=== PATIENT | male | born 1950 | race African-American/Black ===

== ENCOUNTER 2017-10-30 11:41 | Inpatient (IN) | payer OTHER ==
[~2017-10-30] VITALS: Ht 180.3 cm; Wt 99.8 kg
[~2017-10-30 11:41] MED LIST: AMLODIPINE BESY10 MG PO; ASPIR 8181 MG PO; B-121000 MC2 PO; CALCIUM 500 +1 EAC5 PO; DUONEB 2.5-0.5 M3 ML INH; HYDROCHLOROTHIA25 M2 PO; LIPITOR80 MG PO; MAXZIDE-25 MG1 EACH PO; METFORMIN HCL500 MG PO; NAPROSYN500 MG PO; SERTRALINE HCL50 MG PO; TRAZODONE HCL100 MG PO; VENTOLIN HFA 1818 GM INH; VIAGRA100 MG PO
[2017-10-30 11:48] VITALS: BP 121/77
[2017-10-30 12:19] LABS: ABSOLUTE BASOPHILS 0.1 thou/uL (0.0-0.2); ABSOLUTE EOSINOPHILS 0.1 thou/uL (0.0-0.7); ABSOLUTE LYMPHOCYTES 1.5 thou/uL (0.8-5.3); ABSOLUTE MONOCYTES 1.2 thou/uL (0.0-1.2); ABSOLUTE NEUTROPHILS 8.2 thou/uL (1.6-8.1); EOSINOPHILS 0.5 %; HEMATOCRIT 38.9 % (42.0-52.0); HEMOGLOBIN 12.4 gm/dL (14.0-18.0); LYMPHOCYTES 13.2 %; MCH 30.9 pg (26.0-34.0); MCHC 31.8 g/dL (28.0-37.0); MCV 97.2 fL (80.0-100.0); MONOCYTES 10.8 %; MPV 9.4 fl. (7.2-11.1); NUCLEATED RBCS 0 /100WBC; PLATELET COUNT* 308 thou/uL (150-400); POLYS 74.5 %; RBC 4.01 mil/uL (4.50-6.00); RDW-CV 17.2 % (10.5-14.5); WBC 11.1 thou/uL (4.0-11.0)
[2017-10-30 12:30] LABS: ANION GAP 13 mmol/L (7-16); BUN 36 mg/dL (7-18); CALCIUM 9.2 mg/dL (8.5-10.1); CHLORIDE 101 mmol/L (98-107); CO2 21 mmol/L (21-32); CREATININE 1.6 mg/dL (0.6-1.3); GLUCOSE 166 mg/dL (70-99); POTASSIUM 4.9 mmol/L (3.5-5.1); SODIUM 135 mmol/L (136-145)
[2017-10-30 12:40] LABS: APTT 25.6 Seconds (25.0-31.3); INR 1.3; PROTIME 12.7 Seconds (9.20-11.50)
[2017-10-30 12:53] LABS: ALKALINE PHOSPHATASE 173 U/L (46-116); CK-MB MASS 1.9 ng/mL (<0.5-3.6); LIPASE 248 U/L (73-393); MAGNESIUM 2.1 mg/dL (1.8-2.4); NT-PRO BRAIN NAT PEPTIDE 2535 pg/mL (<300); SGOT 262 U/L (15-37); SGPT 857 U/L (30-65); TOTAL BILIRUBIN 1.5 mg/dL (<0.1-1.0); TOTAL PROTEIN 8.1 g/dL (6.4-8.2); TROPONIN-I LEVEL <0.06 ng/mL (<0.06)
--- NOTE | 2017-10-30 14:30 | NUR ---
CICI NOTIFIED UPON PT RETURN FROM CT. PT CONNECTED TO MONITOR AND O2
[2017-10-30 15:00] VITALS: BP 134/66
--- NOTE | 2017-10-30 15:55 | NUR ---
PT'S PRIMARY RN VLADIMIR LEFT FOR TELEMETRY UNIT, WILL BE ASSUMING CARE OF PT AGAIN ONCE PT MOVES TO TELEMETRY FLOOR.
[2017-10-30 16:20] VITALS: BP 134/66
--- NOTE | 2017-10-30 16:33 | 2DMMODE ---
[place] [id number] 2 D/M-MODE ECHOCARDIOGRAM Name: TOM DE JESUS Room: [address] IN [facility]#: [id number] Admission: 10/30/17 Attend Phys: Maritza Chairez, Discharge: Date of : 46 Date of Service: 10/30/17 1633 Report #: [id number] THIS REPORT FOR: //name// APPROVED REPORT Study performed: 10/30/2017 14:28:52 EXAM: Comprehensive 2D, Doppler, and color-flow Echocardiogram Patient Location: In-Patient Room #: er Status: routine BSA: 2.13 HR: 68 bpm BP: 118/74 mmHg Rhythm: NSR Other Information Study Quality: Good Indications Chest Pressure 2D Dimensions LVEF(%): 17.36 (>50%) IVSd: 9.53 (7-11mm) LVOT Diam: 20.00 (18-24mm) LVDd: 55.88 mm PWd: 8.32 (7-11mm) Ascending Ao: 34.82 (22-36mm) LVDs: 51.45 (25-40mm) Aortic Root: 33.21 mm Carlos's LVEF: 17.36 % Volumes Left Atrial Volume (Systole) LA ESV Index: 39.10 mL/m2 Aortic Valve AoV Peak Eleno.: 1.46 m/s AO Peak Gr.: 8.49 mmHg LVOT Max P.28 mmHg AO Mean Gr.: 4.71 mmHg LVOT Mean P.33 mmHg LVOT Max V: 1.15 m/s AO V2 VTI: 18.23 cm LVOT Mean V: 0.69 m/s BOGDAN (VTI): 2.65 cm2 LVOT V1 VTI: 15.39 cm Mitral Valve E/A Ratio: 2.92 [place] [id number] 2 D/M-MODE ECHOCARDIOGRAM Name: TOM DE JESUS Room: [address] IN [facility].#: [id number] Admission: 10/30/17 Attend Phys: Maritza Chairez, Discharge: Date of : 46 Date of Service: 10/30/17 1633 Report #: [id number] MV Decel. Time: 101.17 ms MV E Max Eleno.: 1.09 m/s MV PHT: 29.34 ms MVA (PHT): 7.50 cm2 TDI E/Lateral E': 7.79 E/Medial E': 13.63 Medial E' Eleno.: 0.08 m/s Lateral E' Eleno.: 0.14 m/s Pulmonary Valve PV Peak Eleno.: 0.91 m/s PV Peak Gr.: 3.30 mmHg Tricuspid Valve TR Peak Gr.: 24.22 mmHg RVSP: 29.00 mmHg Left Ventricle The left ventricle is normal size. There is global hypokinesis of the left ventricle. There is normal left ventricular wall thickness. Left ventricular systolic function is severely decreased. LVEF is 20-25%.. Grade IV - fixed restrictive diastolic dysfunction. Right Ventricle The right ventricle is normal size. The right ventricular systolic function is normal. Pacemaker lead is present in the right ventricle. Atria Left atrium is mildly dilated. The right atrium size is normal. Aortic Valve The aortic valve is normal in structure. Trace aortic regurgitation. There is no aortic valvular stenosis. Mitral Valve The mitral valve is normal in structure. Moderate to severe mitral regurgitation No evidence of mitral valve stenosis. Tricuspid Valve The tricuspid valve is normal in structure. Mild tricuspid regurgitation. The RVSP is 35___ mmHg. Pulmonic Valve The pulmonary valve is normal in structure. [place] [id number] 2 D/M-MODE ECHOCARDIOGRAM Name: TOM DE JESUS Room: [address] IN [facility]#: [id number] Admission: 10/30/17 Attend Phys: Maritza Chairez, Discharge: Date of : 46 Date of Service: 10/30/17 1633 Report #: [id number] Great Vessels The aortic root is normal in size. IVC is normal in size and collapses with >50% inspiration Pericardium There is no pericardial effusion. <Conclusion> LVEF is 20-25%.. Left atrium is mildly dilated. Moderate to severe mitral regurgitation <ELECTRONICALLY SIGNED> By: Raghav Ramos MD, FACC 10/30/17 1633 1633 1633 Raghav Ramos MD, FACC /INF
--- NOTE | 2017-10-30 16:47 | EKG ---
[place] [address] ELECTROCARDIOGRAM REPORT Name: TOM DE JESUS Room: [address] ADM IN [facility]#: [id number] Admission: 10/30/17 Attend Phys: Maritza Chairez MD Discharge: Date of : 46 Report #: [id number] THIS REPORT FOR: //name// [facility] ED Test Date: 2017-10-30 Test Time: 11:48:28 Pat Name: TOM MCBRIDEING Department: Room: [facility] Gender: M Sales Development Director: CHANTELL : 1950 Requested By: Nick Tejeda Order Number: [id number] MD: Raghav Ramos Measurements Intervals [place] Rate: 85 P: 0 NH: 198 QRS: 114 QRSD: 166 T: 44 QT: 471 QTc: 561 Interpretive Statements Ventricular-paced complexes atrial fibrillation No further analysis attempted due to paced rhythm Compared to ECG 09/12/2017 07:23:22 No significant changes Electronically Signed On 10-30-2017 16:47:09 EXECUTIVE CONSULTANT by Raghav Ramos [email or web address] <ELECTRONICALLY SIGNED> By: Raghav Ramos MD, [facility] 10/30/17 1647 1148 1148 Raghav Ramos MD, [facility] /EPI
--- NOTE | 2017-10-30 17:30 | NUR ---
VSS, ASSUMED CARE OF PT FROM ER, ASSESSMENT PERFORMED AND CHARTED, FALL PRECAUTION IN PLACE AND CALL LIGHT IN REACH, PT IS A&O4 AND UP WITH STAND BY, PT IS ON 2L NC PRN, IS PACED ON THE MONITOR, PT STATES CHEST PAIN AND IS SOA WHEN SLEEPING, PT GOAL IS TO IMPROVE BREATHING AND SIT UP IN CHAIR, WILL FOLLOW WITH PLAN OF CARE AND HOURLY ROUNDS,
[2017-10-30 20:43] VITALS: BP 128/76
[2017-10-31 00:25] VITALS: BP 110/64
[2017-10-31 04:35] VITALS: BP 115/62
[2017-10-31 08:00] VITALS: BP 103/60
--- NOTE | 2017-10-31 08:24 | NUR ---
PT IS ABLE TO COMMUNICATE HIS NEEDS TO STAFF EFFECTIVELY. HE HAS DENIED THE NEED FOR PAIN MEDICATION UP TO THIS TIME. BLE EDEMA HAS DECREASED NOTABLY REPORTED BY THE PATIENT.
[2017-10-31 12:58] VITALS: BP 116/68
[2017-10-31 16:00] VITALS: BP 123/76
--- NOTE | 2017-10-31 18:52 | NUR ---
VSS, ASSESSMENT PERFORMED AND CHARTED, FALL PRECAUTIONS IN PLACE AND CALL LIGHT IN REACH, PT IS UP AD YASEMIN AND ON 2L NC PRN, PT DEINES ANY PAIN AND HIS GOAL IS TO WALK IN ROOM AND IMPROVE BREATHING, PT IS TRACING SR ON THE MONITOR HE IS A&O4, WILL FOLLOW WITH PLAN OF CARE.
--- NOTE | 2017-10-31 18:54 | NUR ---
VSS. PT IS PROGRESSING TOWARDS GOAL, PT HAS IMPROVED BREATHING AND HAS BEEN UP IN ROOM IN CHAIR AND WALKING IN ROOM, PT DENIES ANY PAIN AND IS TRACING SR AV-PACED ON THE MONITOR, HOURLY ROUNDS COMPLETED,
[2017-10-31 20:17] VITALS: BP 113/73
[2017-11-01] VITALS: BP 93/56
[2017-11-01 04:00] VITALS: BP 90/53
--- NOTE | 2017-11-01 05:36 | NUR ---
PT IS ABLE TO COMMUNICATE HIS NEEDS TO STAFF EFFECTIVELY. HE HAS DENIED THE NEED FOR PAIN MEDICATION UP TO THIS TIME. NIGHT TIME O2 DESAT STUDY PERFORMED DURING THIS SHIFT.
[2017-11-01 08:00] VITALS: BP 91/48
--- NOTE | 2017-11-01 09:00 | NUR ---
VSS, ASSUMED CARE IN THE AM, ASSESSMENT PERFORMED AND CHARTED, FALL PRECAUTIONS IN PLACE AND CALL LIGHT IN REACH, PT IS A&O4 AND ON RA AND UP AD YASEMIN TRACING SR ON THE MOITOR, DENIES MARYA PAIN, WEARS 2L NC PRN AT HS, PT GOAL IS TO IMPROVE BREATHING AND DECREAS SWELLING IN LEGS, WILL FOLLOW WITH PLAN OF CARE,
[2017-11-01 12:00] VITALS: BP 110/75
[2017-11-01 13:01] LABS: HEMATOCRIT 33.5 % (42.0-52.0); HEMOGLOBIN 10.9 gm/dL (14.0-18.0); MCH 31.1 pg (26.0-34.0); MCHC 32.5 g/dL (28.0-37.0); MCV 95.7 fL (80.0-100.0); MPV 9.7 fl. (7.2-11.1); NUCLEATED RBCS 0 /100WBC; PLATELET COUNT* 277 thou/uL (150-400); RDW-CV 17.4 % (10.5-14.5); WBC 10.7 thou/uL (4.0-11.0)
[2017-11-01 13:19] LABS: ALBUMIN 3.3 g/dL (3.4-5.0); CALCIUM 8.7 mg/dL (8.5-10.1); CREATININE 1.7 mg/dL (0.6-1.3); MAGNESIUM 2.4 mg/dL (1.8-2.4); POTASSIUM 4.6 mmol/L (3.5-5.1); TOTAL BILIRUBIN 0.6 mg/dL (<0.1-1.0)
[2017-11-01 13:32] LABS: ABSOLUTE LYMPHOCYTES 0.4 thou/uL (0.8-5.3); ABSOLUTE MONOCYTES 0.4 thou/uL (0.0-1.2); ABSOLUTE NEUTROPHILS 9.8 thou/uL (1.6-8.1); ANISOCYTOSIS 1+; ATYPICAL LYMPHS 1 %; BURR CELLS Occasional; HYPOCHROMASIA 2+; PLATELET ESTIMATE ADEQUATE
[2017-11-01 16:00] VITALS: BP 123/76
--- NOTE | 2017-11-01 17:28 | NUR ---
VSS, PT IS PROGRESSING TOWARDS GOAL, PT IS ON 2L NC PRN AT HS, PT IS UP AD YASEMIN, TRACING ST ON THE MONITOR AND DENIES ANY PAIN, PT HAS PITTING 2 PLUS IN LOWER LEGS, IS TO HAVE STRESS TEST TOMORROW, HOURLY ROUNDS COMPLETED, WILL FOLLOW WITH PLAN OF CARE.
[2017-11-01 20:34] VITALS: BP 112/76
[2017-11-02] VITALS: BP 104/52
[2017-11-02 04:00] VITALS: BP 93/64
[2017-11-02 05:46] LABS: CALCIUM 8.6 mg/dL (8.5-10.1); CREATININE 1.6 mg/dL (0.6-1.3); POTASSIUM 4.7 mmol/L (3.5-5.1)
--- NOTE | 2017-11-02 06:56 | NUR ---
PT IS ABLE TO COMMUNICATE HIS NEEDS TO STAFF EFFECTIVELY. HE HAS DENIED THE NEED FOR PAIN MEDICATION UP TO THIS TIME. HE HAS BEEN NPO SINCE MIDNIGHT FOR A A TENTATIVELY SCHEDULED STRASS TEST FOR LATER TODAY.
[2017-11-02 08:00] VITALS: BP 102/63
--- NOTE | 2017-11-02 09:03 | NUR ---
VSS, ASSUMED CARE IN THE AM, ASSESSMENT PERFORMED AND CHARTED, FALL PRECAUTIONS IN PLACE AND CALL LIGHT IN REACH, PT IS A&O4 AND UP ADLIB AND DENIES ANY PAIN, PT GOAL IS TO IMPROVE BREATHING AND DECREAS SWELLING IN LEGS, COMPLETE STRSS TEST, PT IS V-PACED ON THE MONITOR AND ON 2L NC SC AT HS WILL FOLLOW WITH PLAN OF CARE
[2017-11-02 12:22] VITALS: BP 119/68
--- NOTE | 2017-11-02 14:49 | NUR ---
INITIAL ASSESSMENT: Pt evaluated for d/c planning needs. Reviewed chart and spoke with nurse and pt. Pt is alert and oriented. Pt lives in house with spouse and adult daughter. Pt was independent with ADL's prior to admission. Pt has nebulizer and CPAP at home, and uses walker for ambulation. Pt has not had home health in the past. Pt plans on returning home on d/c from hospital. Will remain available to assist as needed.
[2017-11-02 15:49] VITALS: BP 111/65
--- NOTE | 2017-11-02 16:25 | EKG ---
[place] [address] ELECTROCARDIOGRAM REPORT Name: TOM DE JESUS Room: [address] ADM IN [facility].#: [id number] Admission: 10/30/17 Attend Phys: Maritza Chairez MD Discharge: Date of : 46 Report #: [id number] THIS REPORT FOR: //name// [facility] Test Date: 2017-11-01 Test Time: 13:49:31 Pat Name: TOM DE JESUS Department: Room: [address] Gender: M Claims Associate: [facility] : 1950 Requested By: Sebastien Brunner Order Number: [id number] Regan MD: Bimal Barron Measurements Intervals [place] Rate: 98 P: 31 NV: 113 QRS: 117 QRSD: 193 T: -32 QT: 432 QTc: 552 Interpretive Statements Ventricular-paced complexes tracking atrial depolarization Nonspecific intraventricular conduction delay Baseline wander in lead(s) V6 Compared to ECG 10/30/2017 11:48:28 Intraventricular conduction delay now present Atrial fibrillation no longer present Electronically Signed On 11-02-2017 16:25:35 INSPECTOR POISING by Bimal Barron [email or web address] <ELECTRONICALLY SIGNED> By: Bimal Barron MD, FAC 11/02/17 1625 1349 1349 Bimal Barron MD, [facility] /EPI
--- NOTE | 2017-11-02 17:09 | CARDNUC ---
[place] [address] CARDIAC NUCLEAR IMAGING REPORT Name: TOM DE JESUS Room: [address] IN [facility]#: [id number] Admission: 10/30/17 Attend Phys: Maritza Chairez, Discharge: Date of : 46 Date of Service: 11/02/17 1709 Report #: [id number] THIS REPORT FOR: //name// APPROVED REPORT Exam: Nuclear Stress Test Indication: Chest pain, Dyspnea Patient Location: In-Patient Room #: 223 Stress Tech: Suellen Winkler Stress Nurse: Marisabel House RN NM Tech:KOREY Leiva Ht: 5 ft 11 in Wt: 225 lbs BSA: 2.22 m2 BMI: 31.37 Medical History Medical History: Atrial Fibrillation, COPD, Diabetes, HTN, Hyperlipidemia, Pacemaker in situ Medications: amlodipine, atorvastatin, asa, furosemide Allergies: PCN Cardiac Risk Factors: Age, DM, HTN, Hyperlipidemia Previous Cardiac Procedures: PPM Exercise History: Sedentary Stress Test Details Stress Test: Pharmacologic stress testing performed using 0.4 mg of regadenoson per 5 mL given IV over 10 seconds. Reason for pharmacologic stress test: PPM. HR Resting HR: 96 bpm Max Heart Rate (APMHR): 152 bpm Max HR Achieved: 96 bpm Target HR (85% APMHR): 129 bpm % of APMHR: 63 Recovery HR: 94 bpm BP Resting BP: 122/85 mmHg Max BP: 123/71 mmHg ECG Resting ECG: Sinus Rhythm with ventricular pacing Stress ECG: Sinus Rhythm with ventricular pacing ST Change: None Arrhythmia: None [address] [address] CARDIAC NUCLEAR IMAGING REPORT Name: TOM DE JESUS Room: [address]#: [id number] Admission: 10/30/17 Attend Phys: Maritza Chairez, Discharge: Date of : 46 Date of Service: 11/02/17 1709 Report #: [id number] Recovery ECG: Sinus Rhythm with ventricular pacing Recovery ST Change: None Recovery Arrhythmia: None Clinical Reason for Termination: Completed protocol Stress Symptoms: - Exercise duration: 0 min sec Exercise capacity: 1.0 METs The patient had mild chest pressure with Lexiscan infusion that resolved in recovery. Stress ECG Conclusion The baseline EKG showed atrial sensing with ventricular pacing. EKGs obtained during and post Lexiscan infusion showed atrial sensing with ventricular pacing. NM EXAM: Myocardial Perfusion REST/STRESS Imaging Protocol: Rest Tc-99m/Stress Tc-99m 1 day Resting Data Rest SPECT myocardial perfusion imaging was performed in supine position 30 minutes following the intravenous injection of 12.0 mCi of Tc-99m Sestamibi. Time of rest injection: 1040 Time of rest imagin The images were gated to evaluate regional wall motion and calculate left ventricular ejection fraction. Administration Route: IV Pharmacologic Stress Pharmacologic stress test was performed by injecting Regadenoson 0.4 mg IV push followed by the intravenous injection of 28.8 mCi of Tc-99m Sestamibi. Time of stress injection: 1330 Time of stress imagin Administration Route: IV Gated Stress SPECT was performed 40 minutes after stress injection. The images were gated to evaluate regional wall motion and calculate left ventricular ejection fraction. Prone imaging was performed. Study Quality Study: Good Artifact: [place] [address] CARDIAC NUCLEAR IMAGING REPORT Name: TOM DE JESUS Room: [address] IN [facility]#: [id number] Admission: 10/30/17 Attend Phys: Maritza Chairez, Discharge: Date of : 46 Date of Service: 11/02/17 1709 Report #: [id number] Study Data At rest, the left ventricular ejection fraction was 28%.. Post stress, the left ventricular ejection was 28%.. TID = 0.96. Perfusion There is a moderate size moderate intensity defect involving the basal to mid inferior wall. No other significant defects are identified. Wall Motion Gated studies show akinesis of the basal to mid inferior wall. There is severe global hypokinesis. Nuclear Conclusion ECG Findings: non-diagnostic Clinical Findings: equivocal Nuclear Findings: negative for ischemia Exercise Capacity: not assessed Left Ventricular Function: abnormal Risk Study: moderate Myocardial perfusion images suggest prior infarct of the basal to mid inferior wall. There is severe left ventricular systolic dysfunction with akinesis of the basal to mid inferior wall. Findings consistent with cardiomyopathy. This is a moderate risk study based on evidence of prior infarct with severe left ventricular systolic dysfunction. <Conclusion> The baseline EKG showed atrial sensing with ventricular pacing. EKGs obtained during and post Lexiscan infusion showed atrial sensing with ventricular pacing. <ELECTRONICALLY SIGNED> By: Rolando Wilson MD, FACC 11/02/171708 08 08 Rolando Wilson MD, FACC /INF
--- NOTE | 2017-11-02 17:17 | NUR ---
VSS, PT IS V-PACED ON THE MONITOR, ON RA AND UP AD YASEMIN AND DENIES ANY PAIN, PT IS A&O4 AND HAS COMPLETED, STRESS TEST AND HAS RECIEVED EDU ON HR, WILL FOLLOW WITH PLAN OF CARE AND HOURLY ROUNDS COMPLETED, NO OTHER STATUS CHANGE AT THIS TIME.
[2017-11-02 19:17] LABS: CHOLESTEROL 129 mg/dL (<200); HDL CHOLESTEROL 55 mg/dL (>40); LDL CHOLESTEROL 70 mg/dL (<100); SERUM ASSESSMENT Clear; TC:HDL 2.3 Ratio (Not establshd); TRIGLYCERIDE 20 mg/dL (<150); VLDL 4 mg/dL (<40)
[2017-11-02 20:52] VITALS: BP 109/74
[2017-11-03] VITALS: BP 102/67
[2017-11-03 04:00] VITALS: BP 101/59
[2017-11-03 06:08] LABS: HEMATOCRIT 35.6 % (42.0-52.0); HEMOGLOBIN 11.3 gm/dL (14.0-18.0); MCH 30.5 pg (26.0-34.0); MCHC 31.9 g/dL (28.0-37.0); MCV 95.8 fL (80.0-100.0); MPV 9.3 fl. (7.2-11.1); RBC 3.71 mil/uL (4.50-6.00); RDW-CV 17.4 % (10.5-14.5); WBC 9.7 thou/uL (4.0-11.0)
[2017-11-03 06:43] LABS: CREATININE 1.6 mg/dL (0.6-1.3); POTASSIUM 4.8 mmol/L (3.5-5.1)
--- NOTE | 2017-11-03 07:56 | NUR ---
PT IS ABLE TO COMMUNICATE HIS NEEDS TO STAFF EFFECTIVELY. HE HAS DENIED THE NEED FOR PAIN MEDICATION UP TO THIS TIME. HE HAS BEEN NPO SINCE MIDNIGHT FOR A RENAL US TO BE PERFORMED THIS MORNING. POSSIBLE DISCHARGE TODAY OR TOMORROW.
[2017-11-03 08:00] VITALS: BP 114/78
[2017-11-03] MEDS ORDERED: CARVEDILOL3.125 MG PO (08:34)
[2017-11-03] MEDS ORDERED: LEVAQUIN 250 M250 MG PO (08:35)
[2017-11-03] MEDS ORDERED: PREDNISONE 20 M20 MG PO (08:35)
[2017-11-03 12:02] VITALS: BP 87/67
--- NOTE | 2017-11-03 15:01 | CON ---
[address] [address] CONSULTATION Name: TOM DE JESUS Room: [address] IN [facility].#: [id number] Admission: 10/30/17 Attend Phys: Maritza Chairez MD Discharge: Date of : 46 Report #: [id number] THIS REPORT FOR: //name// CC: Maritza RIOS CARDIOLOGY CONSULTATION HISTORY OF PRESENT ILLNESS: I was asked by Dr. Maritza Chairez to see this 66-year-old -Maced[place] male in Cardiology consultation for evaluation and treatment of congestive heart failure. This man was here about a month ago with what I believe to have been and felt to be an exacerbation of chronic obstructive pulmonary disease. He came back and now with more dyspnea on exertion. He also had chest pain that he describes to me is a pressure or tightness. It was worse lying down. It would awaken him at night and he have to sit up. It was relieved sitting up, it would be associated with shortness of breath. He says it was not sharp. He had a cough and he had edema formation. He does have a history of a pacemaker. Additionally, he has hypertension and history of atrial fibrillation, allegedly. His EKG on admission, however, showed what appears to be sinus rhythm with APCs and atrial sensed ventricular paced rhythm. He was admitted with what was felt to be heart failure and he got one dose of Lasix and improved. He had an echocardiogram done, apparently has not had one previously that showed his left ventricular ejection fraction was 20-25%. There was global hypokinesis. There was grade 4 or fixed restrictive diastolic dysfunction pattern. There was ictulwbo-cw-vmziwg mitral regurgitation. He does have dyspnea on exertion, shortness of breath at rest, orthopnea, PND and edema. His edema is about 2+. Cardiac risk factors include past history of smoking. He has hypercholesterolemia, diabetes, high blood pressure, family history of heart disease and he has renal disease. He has never had a stroke or TIA. He does not have blocked arteries in his neck, does have pain in his legs when he walks, does not have any open or nonhealing wounds. He does have a pacemaker. He is followed at the [facility]. He was taken off triamterene/hydrochlorothiazide when he was here last. MEDICATIONS: He has been taking include amlodipine, aspirin, atorvastatin, calcium, cyanocobalamin, metformin, sertraline, trazodone, albuterol. Please see the ER note for the doses. ALLERGIES: INCLUDE PENICILLIN. REVIEW OF SYSTEMS: Positive for erectile dysfunction, cough, sputum production, wheezing, palpitations, chest discomfort, shortness of breath with exercise, shortness of breath lying down, waking up short of breath, edema, diabetes, thyroid trouble, anemia, seasonal allergies, medical allergies, PENICILLIN allergy, wearing glasses, decreased hearing and wearing dentures. Otherwise, his review of systems is negative for some 30 different complaints in 14 different system categories including central nervous system, general, [place] [address] CONSULTATION Name: TOM DE JESUS Room: [address]#: [id number] Admission: 10/30/17 Attend Phys: Maritza Chairez MD Discharge: Date of : 46 Report #: [id number] respiratory, cardiovascular, endocrine, gastrointestinal, genitourinary, hematologic, lymphatic, allergic, immunologic, psychiatric, musculoskeletal, skin, eyes, ears, nose, mouth, and throat. Please see review of system form for details and negatives in review of systems. SOCIAL HISTORY: He is , works for [employer], does not smoke, drink or use illegal drugs. FAMILY HISTORY: Unremarkable, according to him, there is no history of heart trouble or history of sudden . PHYSICAL EXAMINATION: GENERAL: He presents as a well-developed, well-nourished -Macedonian male in no acute distress. VITAL SIGNS: His pulse was 96 and regular, blood pressure is 91/48, respirations were 20 and regular, temperature is 98 degrees. HEENT: His head was atraumatic. Eyes clear. NECK: Supple. There is no jugular venous distention or hepatojugular reflux. Thyroid is not enlarged. There is no adenopathy. SKIN: Warm and dry. Mucous membranes are moist. LUNGS: Reveal decreased breath sounds bilaterally with an increased expiratory phase. HEART: Revealed normal first and second heart sound. There is no S4, no S3, no murmurs, rubs, thrills, heaves or gallops. PMI is nondisplaced. ABDOMEN: Soft, flat, nontender, no palpable masses, no organomegaly. EXTREMITIES: Reveal no cyanosis, clubbing. There is 1-2+ edema bilaterally in the ankles. NEUROLOGIC: The patient mentated normally, talked normally, moved all extremities normally. Chest x-ray was read as no new acute cardiopulmonary issues. He had a CT of the abdomen and pelvis that was unremarkable. He had a CT of the chest that showed no evidence of pulmonary emboli. There was right pleural fluid. There was little change from the study from 09/11/2017. IMPRESSION: 1. 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 2. Chest discomfort that likely represented his heart failure. 3. Elevated BNP. 4. Chronic obstructive pulmonary disease exacerbation. 5. Cardiomyopathy. 6. Yzkayqjm-im-rdoqch mitral regurgitation. 7. Rvm-hnueopi-kilmcalvo diabetes mellitus. RECOMMENDATION: I would diurese him. His blood pressure is low enough now that I would withhold beta blockers for the time being and also withhold JEISON [facility] [address] [place] [address] CONSULTATION Name: TOM DE JESUS Room: [address] IN .R.#: [id number] Admission: 10/30/17 Attend Phys: Maritza Chairez MD Discharge: Date of : 46 Report #: [id number] inhibitors for the time being until we were able to get her diuresed a bit. I would stop his amlodipine. Once the amlodipine gets out of his system, his blood pressure comes up a bit. He should be started on a low dose of lisinopril and titrate it upward and subsequently as tolerated, started on low dose of carvedilol and titrate it upward. He needs a Lexiscan Cardiolite stress test to assess his cardiomyopathy, if it is ischemic, I would go ahead and check full PFTs once he has diuresed a bit. He is going to need further evaluation with regard to his mitral regurgitation. Thank you very much for asking me to see the patient. If any questions, please feel free to contact me. <ELECTRONICALLY SIGNED> By: Sebastien Brunner MD, [facility] 11/03/17 1501 1342 [id number]. Alex Brunner MD, FACC /nt
[2017-11-03 15:50] VITALS: BP 101/74
--- NOTE | 2017-11-03 18:50 | NUR ---
PATINET RESTING IN BED. VITAL SIFGNS STABLE. PATINET ABLE TO DISCAHRGE IN TE AM WHEN RIDE IS AVAILABLE. HOURLY ROUNDING COMPLETD FOR PATINET SAFETY.
[2017-11-03 19:11] LABS: GLYCOHEMOGLOBIN (HGB A1C) 5.9 % (4.8-5.6)
[2017-11-03 20:00] VITALS: BP 151/82
--- NOTE | 2017-11-04 00:04 | NUR ---
PT A/OX4, AV PACED ON THE MONITOR, RA, UP AD YASEMIN, REPORT NO PAIN/SOA, MEDS/ASSESSMENT PER CHARTING, RFA IV REMOVED, LFA IV RE-DRESSED, MEDS/ASSESSMENT PER CHARTING, HOURLY ROUNDING IN PLACE, FALL PRECAUTIONS IN PLACE, PT ABLE TO MAKE NEEDS KNOWN, PT TO BE D/C IN THE AM PENTING RIDE, VSS, WILL CONT TO MONITOR.
[2017-11-04 00:07] VITALS: BP 102/66
[2017-11-04 04:01] VITALS: BP 98/66
[2017-11-04 08:00] VITALS: BP 106/71
[2017-11-04 11:37] VITALS: BP 103/65
--- NOTE | 2017-11-04 12:16 | NUR ---
ASSUMED CARE OF PATIENT THIS AM AT 0730. PATIENT IS ALERT AND ORIENTED X 4. HE DENIES PAIN AND DISCOMFORT. PATIENT HAS BEEN UP IN THE ROOM INDEPENDANTLY. TELE SHOWS V PACED RHYTHM. PLANS TO DISCHARGE THIS AFTERNOON. WILL CONTNIUE TO MONITOR.
[2017-11-04] MEDS ORDERED: LASIX 40 MG TAB40 M2 PO (12:53)
[2017-11-04 13:11] LABS: CREATININE 1.8 mg/dL (0.6-1.3); POTASSIUM 4.2 mmol/L (3.5-5.1)
--- NOTE | 2017-11-05 11:21 | PF ---
[address] [address] PULMONARY FUNCTION REPORT Name: TOM DE JESUS Room: [address] IN M.R.#: [id number] Admission: 10/30/17 Attend Phys: Maritza Chairez MD Discharge: 11/04/17 Date of : 46 Report #: [id number] THIS REPORT FOR: //name// CC: Maritza RIOS REFERRING PHYSICIAN: Dr. Maritza Chairez. TYPE OF STUDY: Pulmonary function test. SPIROMETRY: The FEV1/FVC ratio was 68%. The FEV1 was 1.76 liters at 51% predicted, FVC was 2.58 liters at 55% predicted. No positive bronchodilator response. Total lung capacity was 2.84 liters at 39% predicted with DLCO of 31% predicted. IMPRESSION: This is severe combined obstructive and restrictive defect with low DLCO without positive bronchodilator response. <ELECTRONICALLY SIGNED> By: Josiah Hardwick MD 11/05/17 1121 1146 2058Josiah Hardwick MD /nt
--- NOTE | 2017-11-09 11:38 | NUR ---
RCEIVED CALL FROM RAMON/LOI REQUESTING DC SUMMARY AND MED LIST BE FAXED TO PT'S PCP DR RIOS AT [phone], DONE
--- NOTE | 2017-11-16 12:49 | PF ---
[address] [address] PULMONARY FUNCTION REPORT Name: TOM DE JESUS Room: [address] IN M.R.#: [id number] Admission: 10/30/17 Attend Phys: Maritza Chairez MD Discharge: 11/04/17 Date of : 46 Report #: [id number] THIS REPORT FOR: //name// CC: Maritza RIOS REFERRING PHYSICIAN: Maritza Chairez MD. TYPE OF STUDY: Pulmonary function test. SPIROMETRY: The FEV1/FVC ratio was 68%. The FEV1 was 1.76 liters at 51% predicted, forced vital capacity 2.58 liters or 55% predicted. Total lung capacity was 2.84 liters or 39% predicted, with a DLCO of 31% predicted. IMPRESSION: This pulmonary function test demonstrates combined defect, obstructive and restrictive defect of moderate to severe degree with low DLCO. <ELECTRONICALLY SIGNED> By: Josiah Hardwick MD 11/16/17 1249 0857 1516Josiah Hardwick MD /nt
== END 2017-11-04 16:40 | disposition home or self-care (01) | DRG 177 ==
LOC: M.ERS 11:41 → M.TBA-ER 12:39 → M.2W 12:39
PROVIDERS: Family Medicine; Internal Medicine; ADMIT Internal Medicine
DX: J15.6 Pneumonia due to other Gram-negative bacteria (principal); I50.43 Acute on chronic combined systolic (congestive) and diastolic (congestive) heart failure; J96.01 Acute respiratory failure with hypoxia; N17.0 Acute kidney failure with tubular necrosis; J44.1 Chronic obstructive pulmonary disease with (acute) exacerbation; I42.9 Cardiomyopathy, unspecified; I13.0 Hypertensive heart and chronic kidney disease with heart failure and stage 1 through stage 4 chronic kidney disease, or unspecified chronic kidney disease; J44.0 Chronic obstructive pulmonary disease with (acute) lower respiratory infection; I48.91 Unspecified atrial fibrillation; E11.22 Type 2 diabetes mellitus with diabetic chronic kidney disease; I34.0 Nonrheumatic mitral (valve) insufficiency; N18.3 Chronic kidney disease, stage 3 (moderate); Z95.0 Presence of cardiac pacemaker; Z88.0 Allergy status to penicillin